=== PATIENT | female | born 1985 | race Caucasian/White ===

== ENCOUNTER 2023-07-12 09:49 | Outpatient (AMB) | payer MEDICAID, SELFPAY ==
--- NOTE | 2023-07-12 10:00 | A.OFFVIS_ITS ---
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 Patient reports when she was younger she needed a right knee surgery that was held off due to her age and sent to PT. Right knee was done in 1999 with [facility]. Currently she has constant pain that radiates into her buttocks and groin area. Her pain presented a couple of years after her knee surgery however the past year her pain has been getting worse. States hearing loud clicking in her hip. Finds very little to no relief with naproxen, topical ointment, and lidocaine patches. 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 Her pain has been worsening since the past year and she currently states she has constant pain in her hip which radiates into her buttocks and groin region. Her pain is aggravated with sleeping as well as getting in and out of the car. She also c/o numbness and tingling in her right leg and hears a loud clicking in her hip. She finds minimal relief with naproxen, topical ointment and lidocaine patches. She has not had any recent injury. She does not have a history of diabetes. 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- [employer] Review of Systems Const All systems reviewed & are unremarkable except as noted in HPI and below Physical Exam Vital Signs: BMI result Body Mass Index 23.2 Const General: cooperative, healthy appearing, comfortable, no acute distress, well developed and alert Orientation/consciousness: patient oriented x3 HEENT Head: Yes normal to inspection, Yes normocephalic and Yes atraumatic Eyes General: appearance normal, both eyes and all related structures Resp Effort & Inspection: normal respiratory effort and able to speak in complete sentences Cardio Rate: regular rate Peripheral pulses: Peripheral pulses 2+ throughout GI Palpation (GI): Soft to palpation Skin Lesions: no lesions Rashes: no rashes Neuro General: patient oriented x3 Extrem Other: Right hip: Normal to inspection. No pain with ROM of the hip. Pain along the greater trochanter. No pain with hip flexion or abduction. Negative tenderness along the SI joint, Negative SLR. NVI. Office Procedures Joint Injection/Drain Joint Injection/Drain Details: right trochanteric bursa Prep: site was prepped using aseptic technique, ethochloride spray was applied and injection warnings given Injected: 80 mg of, DepoMedrol, with 8 mL of and 1% plain lidocaine Procedure: The patient tolerated the procedure well and there was some relief with the local anesthesia Coding 58617 - Glenohumeral/Tronchanteric Bursa/Intraarticular Procedure code (CPT) selection complete Results Reviewed Results Reviewed: 07/12/23 10:25 Lidocaine HCl 2 % MPF [Xylocaine 2 % MPF] 5 ml .ROUTE .STK-MED ONE methylPREDNISolone acetate [DEPO-MedroL] 80 mg .ROUTE .STK-MED ONE Xrays were obtained in the office today and personally reviewed by me of the right hip are negative for joint collapse of osteophyte formation Assessment & Plan Assessment & Plan (1) Trochanteric bursitis of right hip: Code(s): M70.61 - Trochanteric bursitis, right hip Plan We discussed options today which include steroid injection. They did consent to move forward with the right hip injection, which was tolerated well. I recommended rest, ice and elevation and OTC anti-inflammatories PRN for discomfort. She was given a referral to physical therapy. I also sent her home exercises program and demonstrated some while in the office today. If symptoms persist or worsens over the next 6-8 weeks, patient will contact the office, otherwise follow-up as needed. Orders: Orders XR hip RT w PEL1V Today M25.559 - Pain in unspecified hip PT Evaluation and Treatment Today M70.61 - Trochanteric bursitis, right hip Patient Instructions: Scribed for Nathalie Willson PA-C, by Ambrosio Aviles bio medical technician, on 07/12/2023 at 10:00 AM EST. I, Nathalie Willson PA-C, have personally reviewed and agree with the information entered by the scribe. Coding Level of Care Code New Pt Level 3 (63091) Diagnoses Trochanteric bursitis of right hip M70.61 CPT Codes Coding - Joint 7: 73141 - Glenohumeral/Tronchanteric Bursa/Intraarticular ([id number])
[2023-07-12 10:01] VITALS: BMI 23.2
== END 2023-07-12 10:55 | disposition home or self-care (01) ==
PROVIDERS: PCP Student in an Organized Health Care Education/Training Program; Visit Provider Physician Assistant
DX: M70.61 Trochanteric bursitis, right hip (principal)
CPT/HCPCS: 20610; 99203

== ENCOUNTER 2023-07-12 12:54 | Outpatient (REF) | payer MEDICAID, SELFPAY ==
--- NOTE | ~2023-07-12 | XR_ITS ---
EXAMINATION: XR HIP, RIGHT CLINICAL INFORMATION: Pain in the right hip COMPARISON: None available. TECHNIQUE: Two views of the right hip. FINDINGS: No fracture. Alignment is anatomic. Hip joint space is maintained. Soft tissues are unremarkable. XR/XR hip RT w PEL1V IMPRESSION: Normal right hip.
== END 2023-07-12 12:55 | disposition home or self-care (01) ==
LOC: HO.HOSX 12:54
PROVIDERS: Visit Provider Physician Assistant
DX: M70.61 Trochanteric bursitis, right hip (principal)
CPT/HCPCS: 20610; 73502; 99212; J1040

== ENCOUNTER 2024-12-19 13:19 | Outpatient (REF) | payer MEDICAID, SELFPAY ==
--- NOTE | ~2024-12-19 | XR_ITS ---
EXAMINATION: XR SACRUM AND COCCYX CLINICAL INFORMATION: LBP / scaral pain COMPARISON: None available. TECHNIQUE: 2 views of the sacrum and 2 views of the coccyx were obtained. FINDINGS: No fracture, dislocation, or suspicious bone lesion. Sacral arches are intact. SI joints demonstrate very mild arthritic changes. The inferior sacrum and coccyx appear intact and unremarkable. Mild parasymphyseal spurring of the pubic bones. Normal-appearing hip joints. Normal-appearing lower lumbar spine. No soft tissue abnormalities. XR/XR sacrum coccyx min 2V IMPRESSION: 1. No acute sacral or coccygeal abnormality. 2. 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 Electronically signed by: Dash Marin MD 12/19/2024 03:57 PM EDT
--- NOTE | ~2024-12-19 | XR_ITS ---
EXAMINATION: X-RAY LUMBAR SPINE 4 VIEWS. CLINICAL INFORMATION: Low back pain radiating to the right hip. TECHNIQUE: 4 views of the lumbar spine. COMPARISON: None FINDINGS: No acute cortical disruption or gross malalignment. No lytic or blastic lesions. 7 mm metallic structure/foreign body in the abdomen and overlapping the L4 level. XR/XR lumbar spine 4V min IMPRESSION: No acute fracture or listhesis. Negative. Electronically signed by: Chinedu Da Silva MD 12/19/2024 03:52 PM EDT
--- NOTE | ~2024-12-19 | XR_ITS ---
EXAMINATION: XR HIP 2 OR MORE VIEWS RIGHT HISTORY: PAIN COMPARISON: Comparison is made with the prior examination dated 07/12/2023. FINDINGS: Two views of the right hip are submitted. Osseous mineralization is normal. There is no fracture or dislocation. The joint space is maintained. The soft tissues are unremarkable. XR/XR hip RT min 2V IMPRESSION: Unremarkable examination of the right hip. Electronically signed by: Jason Kearney MD 12/19/2024 03:53 PM EDT
--- OUTSIDE RECORDS SUMMARY | 2024-12-19 14:33 | XMS_ITS | Encounter Summary ---
Author Organization [employer] Address [address] [place] [address] [address] [place] [address] Care Team Providers Care Gutter Installer Name Role Phone Danna Irving MD Primary Care Pro vider Reason for Referral * Imaging (Routine) - Pending Review Specialty Diagnoses / Procedures Referred By Contac t Referred To Contact Radiology Diagnoses Arthritis of right hip Chronic bilateral low back pain with right-sided sciatica Procedures MR Hip w/o Contrast Right Luann Davison MD [address] [place] [address] Phone: tel: fax: Referral ID Status Reason Start Date Expiration Date V isits Requested Visits Authorized [id number] Pending Review 12/19/2024 12/19/2025 1 1 Reason for Visit * Reason Comments Hip Pain Encounter Details Date Type Department Care Team (Late st Contact Info) Description 12/19/2024 12:15 PM EDT Office Visit [facility] [address] [place], [place] [phone] Luann Davison MD [address] [place], [place] [phone] Arthritis of right hip (Primary Dx); Chronic bilateral low back pain with right-sided sciatica Social History Tobacco Use Types Packs/Day Years Used Date Smoking Tobacco: Every Day Cigarettes Passive Smoke Exposure: Current Smokeless Tobacco: Never Tobacco Cessation:Ready to Q uit: Not Asked; Counseling Given: Not Answered Comments:Smoking tobacco since 23 years of age -stopped during in -now smoking again ---7- 10 cigaret a day now in average 15 total . PQT year 18.7 + vaping Alcohol Use Standard Drinks/Week Comments Yes 0 (1 standard drink = 0.6 oz pure alcohol) 2 to 3 times a week wine -2 glasses or mixed vodka Depression Answer Date Recorded Patient Health Questionnaire-9 Score 2 05/24/2023 Housing Stability Answer Date Recorded What is your housing situation today? I have carolee olivera 07/12/[address] you li ve. Do you have problems with any of the following? None of the above 07/12/2023 Food Insecurity Answer Date Recorded Within the past 12 months, y ou worried that your food would run out before you got money to buy more: Never True 07/12/2023 Within the past 12 months,th e food you bought just didn't last and you didn't have enough money to get more: Never True Transportation Answer Date Recorded In the past 12 months, has l ack of transportation kept you from medical appts, meetings, work or from getting things needed for daily living? No 07/12/2023 Utilities Answer Date Recorded In the past 12 months, has t he electric, gas, oil or water company threatened to shut off services in your home? I am not sure 07/12/2023 Depression Answer Date Recorded Patient Health Questionnaire-2 Score 0 05/24/2023 Comments Unknown Sex and Gender Information Value Date Recorded Sex Assigned at Female 01/30/2023 4:20 PM EDT Legal Sex Female 4:12 PM EDT Gender Identity Female 01/30/2023 4:20 PM EDT Sexual Orientation Straight 01/30/2023 4: 20 PM EDT documented as of this encounter Last Filed Vital Signs Vital Sign Reading Time Taken Comments Blood Pressure 101/68 12/19/2024 12:28 PM EDT Pulse 135 12/19/2024 12:28 PM EDT Temperature 36.2 ??C (97.2 ??F) 12/19/2024 12:28 PM E DT Respiratory Rate - - Oxygen Saturation 97% 12/19/2024 12:28 PM EDT Inhaled Oxygen Concentration - - Weight 43.2 kg (95 lb 4 oz) 12/19/2024 12:28 PM EDT Height 157.5 cm (5' 2 ) 12/19/2024 12:28 PM EDT Body Mass Index 17.42 12/19/2024 12:28 PM EDT documented in this encounter Plan of Treatment Upcoming Encounters Date Type Department Care Team (Late st Contact Info) Description 02/11/2025 11:30 AM EDT Office Visit [facility] [address] [place] [address] Danna Irving MD [address] [place] [address] Scheduled Orders Name Type Priority Associated Diagnoses Orde r Schedule XR Sacrum Coccyx 2+ Views Imaging Routine Chronic bilateral low back pain with right-sided sciatica Expected: 12/19/2024, Expires: 12/19/2025 XR Hip 4+ Views Right Imaging Routine Arthritis of right hip Ordered: 12/19/2024 XR Lumbar Spine Complete 4+ Views Imaging Routine Chronic bilateral low back pain with right-sided sciatica Ordered: 12/19/2024 MR Hip w/o Contrast Right Imaging Routine Arthritis of right hip Chronic bilateral low back pain with right-sided sciatica Expected: 12/19/2024 (Approximate), Expires: 12/19/2025 documented as of this encounter Visit Diagnoses Diagnosis Arthritis of right hip- Primary Chronic bilateral low back pain with right-sided sciatica documented in this encounter Additional Health Concerns Assessment Noted Time PHQ-9 Depression Total Score: 2 05/24/20 23 9:24 AM EDT documented as of this encounter Care Teams Gutter Installer Relationship Specialty Start Date End Date Danna Irving MD [address] [place] [phone] PCP - General Internal Medicine 05/24/23 documented as of this encounter
--- OUTSIDE RECORDS SUMMARY | 2024-12-19 14:33 | XMS_ITS | Encounter Summary ---
Author Organization [employer] Address [address] [place] [address] 7 [place] [address] Care Team Providers Care Multifocal Button Generator Name Role Phone Danna Irving MD Primary Care Pro vider Reason for Visit * Reason Onset Date Comments Nurse Triage 12/16/2024 Encounter Details Date Type Department Care Team ([facility] st Contact Info) Description 12/16/2024 Telephone [facility] [address] [place] [address] Danna Irving MD [address] [place] [address] Nurse Triage Social History Tobacco Use Types Packs/Day Years Used Date Smoking Tobacco: Every Day Cigarettes Passive Smoke Exposure: Current Smokeless Tobacco: Never Comments:Smoking tobacco sin ce 23 years of age -stopped during in [...] PM EDT documented as of this encounter Miscellaneous Notes * Telephone Encounter - Flower Sim RN - 12/16/2024 11:25 AM EDT Triage call Pt reports right hip pain which radiates to right low back and down right leg. Pt reports swelling in the right hip area, warmth to touch but, neg for redness and occasional numbness in right leg. Pt denies any injury. Pt is having difficulty ambulating and is using a cane and continuesto limp but, has been laying in bed for relief last several days. Pt reports using lidocaine cream and patches without effect. Pt reports using ice/heat also without effect. ASK apt with Dr. Davison 12/19/24 @ 1215pm. Pt agrees with disposition. Pt is advised to seek assist at ED if needed Pt agrees. Insurance is verified as active prior to booking. Protocol Used: Hip Pain (Adult) Protocol-Based Disposition: See in Office or Video Visit within 3 Days Positive Triage Question: * Moderate pain (e.g., interferes with normal activities, limping) and present > 3 days * All higher-acuity triage questions were negative Care Advice Discussed: * Reassurance and Education - Hip Pain * Pain Medicines * Pain Medicines - Extra Notes and Warnings * Rest Your Hip for the Next Couple Days * Reasons To Call Back - Moderate pain (such as limping) lasts more than 3 days - Mild pain lasts more than 7 days - Signs of infection occur (such as spreading redness, warmth, fever) - You become worse * Use a Cold Pack for Pain * Use Heat After 48 Hours for Pain * Telephone Encounter - Black Kirit - 12/16/2024 11:08 AM EDT Symptom: Hip Pain - Not From Injury Outcome: Schedule an urgent appointment (within 1 hour) or talk to a nurse or provider soon Reason: Trouble walking The caller accepted this outcome. *pt states hip pain now radiating towards back . Severe pain/ unable to walk normally Right side of hip warm to the touch documented in this encounter Plan of Treatment Upcoming Encounters Date Type Department Care Team (Late st Contact Info) Description 02/11/2025 11:30 AM EDT Office Visit [facility] [address] [place] [phone] Danna Irving MD [address] [place] [phone] documented as of this encounter Visit Diagnoses Not on filedocumented in this encounter Additional Health Concerns Assessment Noted Time PHQ-9 Depression Total Score: 2 05/24/20 23 9:24 AM EDT documented as of this encounter Care Teams Multifocal Button Generator Relationship Specialty Start Date End Date Danna Irving MD [address] [place] [phone] PCP - General Internal Medicine 05/24/23 documented as of this encounter
--- OUTSIDE RECORDS SUMMARY | 2024-12-19 14:33 | XMS_ITS | Encounter Summary ---
Author Organization [employer] Address [address] [place] [address] 7 [place] [address] Care Team Providers Care Performance Instructor Name Role Phone Danna Irving MD Primary Care Pro vider Reason for Visit * Reason Onset Date Comments Chart prep 12/17/2024 Encounter Details Date Type Department Care Team ([facility] st Contact Info) Description 12/17/2024 Telephone [facility] [address] [place] [address] Danna Irving MD [address] [place] [address] Chart prep Social History Tobacco Use Types Packs/Day Years [...] encounter Miscellaneous Notes * Telephone Encounter - Tosha Marcano MA - 12/17/2024 2:35 PM EDT Chart Prep Labs: not done Images: not done Vaccines due: yes Referrals: appointment pending Screenings: mammogram and pap smear Overdue care gaps: Not applicable documented in this encounter Plan of Treatment Upcoming Encounters Date Type Department Care Team (Late st Contact Info) Description 02/11/2025 11:30 AM EDT Office Visit [facility] [address] [place] [address] Danna Irving MD [address] [place] [address] documented as of this encounter Visit Diagnoses Not on filedocumented in this encounter Additional Health Concerns Assessment Noted Time PHQ-9 Depression Total Score: 2 05/24/20 23 9:24 AM EDT documented as of this encounter Care Teams Performance Instructor Relationship Specialty Start Date End Date Danna Irving MD [address] [place] [phone] PCP - General Internal Medicine 05/24/23 documented as of this encounter
--- OUTSIDE RECORDS SUMMARY | 2024-12-19 14:33 | XMS_ITS | Clinical Summary ---
Author Organization [employer] Address [address] [facility] [address]t [place] [address] Care Team Providers Care Postal Clerk Name Role Phone Danna Irving MD Primary Care Pro vider Allergies No known active allergies Medications acetaminophen (Tylenol) 500 MG tablet Take by mouth. Activ e nicotine polacrilex (EQ Nicotine Polacrilex) 2 MG gum Chew 1 each (2 mg) if needed for smoking cessation. 100 each 3 Active Diclofenac Sodium 1 % gel Apply 1 application topically at noon and 1 application in the evening. Apply in right hip. 50 g 3 Active lidocaine (Lidoderm) 5 % patch APPLY ONE PATCH TOPICALLY DAILY NEEDED FOR PAIN. REMOVE AFTER 12 HOURS 30 patch 3 Active meloxicam (Mobic) 15 MG tablet Take 1 tablet (15 mg) by mouth Once per day. 30 tablet 5 12/20/19 26 Active cyclobenzaprine (Flexeril) 10 MG tablet Take 1 tablet (10 mg) by mouth at bedtime for 10 days. 10 tablet 5 12/30/19 25 Active Active Problems Problem Noted Date Diagnosed Date Health care maintenance 05/24/2023 Anxiety 05/24/2023 Tobacco use disorder 05/24/2023 Nevus 05/24/2023 Elevated blood pressure reading 05/24/2023 Right hip pain 01/30/2023 Assessment & Plan (01/30/2023 10:27 PM EDT): ro trochanteric bursitis, pyriform syndrome, osteonecrosis Order MRI, labs See above Encounters Date Type Department Care Team Description 12/19/2024 12:15 PM EDT Office Visit [facility] [address] [place] [address] Luann Davison MD Arthritis of right hip (Primary Dx); Chronic bilateral low back pain with right-sided sciatica 12/19/2024 Travel 12/17/2024 Telephone [facility] [address] [place] [address] Danna Irving MD Chart prep 12/16/2024 Telephone [facility] [address] [place] [address] Danna Irving MD Nurse Triage 11/29/2024 Population Health Risk Score [facility] () Department [address] [place] [id number] Provider, Population Health Generic from Last 3 Months Family History Medical History Relation Name Comments DM2,HTN,dementia,TIAs Maternal Grandmother Skin cancer Maternal Grandmother Asthma Mother cousin : sarcoma Other unspecified maliagncy Paternal Grandfather Heart disease Paternal Grandmother Asthma Sister Relation Name Status Comments Maternal Grandmother Mother Other Paternal Grandfather Paternal Grandmother Sister Social History Tobacco Use Types Packs/Day Years [...] the past 12 months, has t he [employer], [employer], oil or water company threatened to shut [...] Orientation Straight 01/30/2023 4: 20 PM EDT Last Filed Vital Signs Vital Sign Reading Time Taken Comments Blood Pressure 101/68 12/19/2024 12:28 PM EDT Pulse 135 12/19/2024 12:28 PM EDT Temperature 36.2 ??C (97.2 ??F) 12/19/2024 12:28 PM E DT Respiratory Rate 17 01/30/2023 5:04 PM EDT Oxygen Saturation 97% 12/19/2024 12:28 PM EDT Inhaled Oxygen Concentration - - Weight 43.2 kg (95 lb 4 oz) 12/19/2024 12:28 PM EDT Height 157.5 cm (5' 2 ) 12/19/2024 12:28 PM EDT Body Mass Index 17.42 12/19/2024 12:28 PM EDT Plan of Treatment Upcoming Encounters Date Type Department Care Team (Late st Contact Info) Description 02/11/2025 11:30 AM EDT Office Visit [facility] [address] [place] [address] Danna Irving MD [address] [place], [place] [phone] Health Maintenance Due Date Last Done Comments HIV Screening 1983 Lipid Panel 1983 Alcohol/Substance Use Screening 1995 Family Planning (PISQ) 1998 Hepatitis C Screening 2001 DTaP/Tdap/Td Vaccines (1 - Tdap) 2002 Hepatitis B Vaccines (1 of 3 - 19+ 3-dose series) 2002 Pneumococcal Vaccine: Pediatrics (0 to 5 Years) and At-Risk Patients (6 to 49) Years) (1 of 2 - PCV) 2002 Pap Smear 2004 Cervical Cancer Screening 2013 HPV/Cotest 2013 Mammogram 2023 COVID-19 Vaccine (1 - 2023-2 5 season) 2024 Influenza Vaccine (#1) 2024 07/19/2006 Depression Screening 05/24/2024 05/24/2023, 05/24/2023 SDOH Screening 05/24/2024 05/24/2023 Tobacco Screening 12/19/2025 12/19/2024 Zoster Vaccines (1 of 2) 2033 RSV Patients and Patients Aged 60 years or older (1 - 1-dose 75+ series) 2058 HIB Vaccines Aged Out No longer eligi ble based on patient's age to complete this topic HPV Vaccines Aged Out No longer eligi ble based on patient's age to complete this topic Hepatitis A Vaccines Aged Out No long er eligible based on patient's age to complete this topic IPV Vaccines Aged Out No longer eligi ble based on patient's age to complete this topic Meningococcal Vaccine Aged Out No jesenia linda eligible based on patient's age to complete this topic RSV under 20 months Aged Out No longe r eligible based on patient's age to complete this topic Rotavirus Vaccines Aged Out No longer eligible based on patient's age to complete this topic Insurance [facility] C3 Care Teams Postal Clerk Relationship Specialty Start Date End Date Danna Irving MD [address] [place] [phone] PCP - General Internal Medicine 05/24/23
--- OUTSIDE RECORDS SUMMARY | 2024-12-19 14:33 | XMS_ITS | Encounter Summary ---
Author Organization [employer] Address [address] [facility] [address] [place] [address] Care Team Providers Care Bottom Stop Attacher Name Role Phone Danna Irving MD Primary Care Pro vider Encounter Details Date Type Department Care Team (Latest Contact Info) Description 12/19/2024 Travel Social History Tobacco Use Types Packs/Day Years [...] PM EDT documented as of this encounter Plan of Treatment Upcoming Encounters Date Type Department Care Team (Late st Contact Info) Description 02/11/2025 11:30 AM EDT Office Visit [facility] [address] [place] [phone] Danna Irving MD [address] [place] [phone] documented as of this encounter Visit Diagnoses Not on filedocumented in this encounter Additional Health Concerns Assessment Noted Time PHQ-9 Depression Total Score: 2 05/24/20 9:24 AM EDT documented as of this encounter Care Teams Bottom Stop Attacher Relationship Specialty Start Date End Date Danna Irving MD [address] [place] [phone] PCP - General Internal Medicine 05/24/23 documented as of this encounter
== END 2024-12-19 13:20 | disposition home or self-care (01) ==
LOC: HO.HHCX 13:19
PROVIDERS: Visit Provider Internal Medicine
DX: M54.41 Lumbago with sciatica, right side (principal); G89.29 Other chronic pain
CPT/HCPCS: 72110; 72220; 73502

== ENCOUNTER → 2024-12-19 13:19 | Outpatient (BNV) | payer MEDICAID, SELFPAY | PROVIDERS: Visit Provider Radiology Diagnostic Radiology | DX: M54.50 Low back pain, unspecified (principal); M25.551 Pain in right hip; M53.3 Sacrococcygeal disorders, not elsewhere classified | CPT/HCPCS: 72110; 72220; 73502 ==

== ENCOUNTER 2025-01-08 14:14 | Outpatient (AMB) | payer MEDICAID, SELFPAY ==
--- NOTE | 2025-01-08 14:16 | MHC.OFFVIS ---
Vital Signs 01/08/25 14:18 Height 5 ft 2.5 in Weight 101 lb BMI 18.2 BP 146/96 H Blood Pressure Location Lt brachial Position Sitting Respiration 16 Pulse 121 H Pulse Source Pulse Oximeter Pulse Oximetry (%) 98 Oxygen Delivery Method Room Air Intake Visit Reasons: Low back pain/rt hip arthritis Lockstitch Waistband Setter Required: No Allergies No Known Allergies Allergy (Verified 01/08/25 14:20) Medication List - Last Reconciled 01/08/25 by Miley Lemus LPN acetaminophen 1,000 mg PO Q6H PRN ibuprofen 800 mg PO Q8H PRN HPI Comments Details: The patient is a 39-year-old female presenting with chronic right hip pain. This condition has been progressive over several years, notably worsening over time. An important historical factor includes a previous knee injury during adolescence, which led to right knee orthopedic surgery and contributed to altered weight distribution and misalignment of the right hip. The hip pain is particularly severe, frequently described as a sharp, stabbing sensation or a constant throb, and is accompanied by audible cracking. Activities such as ambulation, stair navigation, and certain sitting positions serve to aggravate the pain, whereas shifting weight to the left side provides some temporary relief. The patient's sleep is severely disrupted, with only short durations of rest possible before pain-related arousal. There is noted groin discomfort and occasional minor back pain, though the latter is not comparable to past sciatica. The patient has a history of unsuccessful conservative treatments, such as physical therapy and NSAIDs, and reports limited relief from a previous bursal injection. Despite pharmacological interventions like Flexeril for muscle relaxation and temporary sleep improvement, the patient avoids prolonged use of analgesic medications, notably narcotics, out of preference for non-pharmacological management. Current priorities include enhanced mobility and a return to routine functional activities without debilitating pain. - Onset and Timing: Chronic, several years; worsened progressively. - Quality and Character: Sharp stabbing and throbbing sensations; cracking sounds in the joint. - Primary Location: Right hip, with discomfort predominantly around the hip bone and groin area; minimal radiation to back. - Aggravating Factors: Walking, stairs, sitting positions that exert pressure on the right hip. - Alleviating Factors: Avoiding pressure on the right side; shifting weight leftwards. - Interferences: Causes sleep disruptions; affects mobility, daily activities, and ability to perform doctor of naprapathy. - Affect: Pain impacts mood significantly, leading to frustration and impaired quality of life. - Analgesia: Previous use of Meloxicam and Flexeril with limited benefit; aversion to narcotic use. - Adverse Effects: Previous injections caused severe short-term discomfort without long-term benefit. - Activities of Daily Living: Struggles with routine tasks; requires assistance with stairs and carrying laundry; severe limitations on mobility and sleep. - Aberrant Drug-Related Behaviors: None reported; adherence to prescribed non-narcotic regimens. 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 - Neurological: Reports sleep disturbances. - Gastrointestinal: Denies significant issues beyond described medications. - Other Systems: Denies additional concerns, unspecified general seasonal allergies acknowledged. Physical Exam Vital Signs: Last Vital Signs Pulse 121 H 01/08/25 14:18 Resp 16 01/08/25 14:18 BP 146/96 H 01/08/25 14:18 Pulse Ox 98 01/08/25 14:18 Oxygen Delivery Method Room Air 01/08/25 14:18 BMI result Body Mass Index 18.2 Results Reviewed Results Reviewed: 12/19/24 XR/XR hip RT min 2V FINDINGS: Two views of the right hip are submitted. Osseous mineralization is normal. There is no fracture or dislocation. The joint space is maintained. The soft tissues are unremarkable. IMPRESSION: Unremarkable examination of the right hip. 12/19/24 XR/XR sacrum coccyx min 2V FINDINGS: No fracture, dislocation, or suspicious bone lesion. Sacral arches are intact. SI joints demonstrate very mild arthritic changes. The inferior sacrum and coccyx appear intact and unremarkable. Mild parasymphyseal spurring of the pubic bones. Normal-appearing hip joints. Normal-appearing lower lumbar spine. No soft tissue abnormalities. IMPRESSION: 1. No acute sacral or coccygeal abnormality. 2. 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 No lytic or blastic lesions. 7 mm metallic structure/foreign body in the abdomen and overlapping the L4 level. IMPRESSION: No acute fracture or listhesis. Negative.. Assessment & Plan Assessment & Plan (1) Right hip pain: Code(s): M25.551 - Pain in right hip Category: Medical Plan I will proceed with an MRI to further investigate the causes of the patient's chronic right hip pain, focusing on detailed imaging to reveal issues not visible via x-rays, such as tendon damage or labral tears. Patient has exhausted greater than 6 weeks conservative therapy including PT, HEP, OTC medications, NSAIDs, prescription medications and previous injections all without improvement of her symptoms. Pain too severe at this time to repeat PT. Cyclobenzaprine will be used for sleep improvement, with emphasis on avoiding long-term narcotic use. Hip injection therapy will be considered depending on MRI findings. The patient has been counseled extensively on the benefits, risks, and alternatives to these approaches and agrees to the proposed management plan. Follow-up will occur after MRI completion to ascertain appropriate therapeutic interventions going forward. During today's visit, we discussed the possibility of structural abnormalities, such as labral tears in the right hip, which an MRI will help to confirm. I explained the potential benefits of a steroid injection for pain relief, should the MRI indicate appropriate targets. We also covered the limitations of x-ray findings and the broader capabilities of MRI in visualizing soft-tissue structures. The patient accepted the plan once informed about the need for further imaging to refine therapeutic strategies. She verbalized understanding of all proposed diagnostic tests, risks involved, and agreed to return for further discussions after MRI completion. Patient was informed and verbally consented to the use of an ambient scribe for clinic note documentation during this visit. Orders: Orders MR hip RT wo con Today M25.551 - Pain in right hip Medications: New cyclobenzaprine 10 mg PO BEDTIME PRN 30 tabs 1RF muscle spasm Patient Instructions: - Await a call to schedule an MRI for your right hip to discern structural issues. - Continue using the prescribed muscle relaxant at bedtime to aid sleep. - Avoid long-term use of NSAIDs due to potential gastrointestinal side effects. - Call our office if you do not receive MRI scheduling within a week. - Report any new symptoms, worsening pain, or concerns promptly. - Maintain current care strategies while awaiting further test results. - Follow-up with us once MRI results are available to further discuss intervention strategies. Coding Level of Care Code New Pt Level 4 (84122) Complex EM visit Add On G2211 Diagnoses Right hip pain M25.551
[2025-01-08 14:18] VITALS: BP 146/96; PULSE 121; RESP 16; O2SAT 98; BMI 18.2
--- OUTSIDE RECORDS SUMMARY | 2025-01-08 17:06 | XMS_ITS | Encounter Summary ---
Author Organization [employer] Address [address] [facility] 7t [place] [address] Care Team Providers Care Diversified Crops Supervisor Name Role Phone Danna Irving MD Primary Care Pro vider Reason for Visit * Reason Onset Date Comments Med Refill 01/03/2025 Encounter Details Date Type Department Care Team (Late st Contact Info) Description 01/03/[address] [facility] MEDICINE [address] [place], [place] [phone] Luann Davison MD [address] [place], [place] [phone] Social History Tobacco Use Types Packs/Day Years [...] Description 02/11/2025 11:30 AM EDT Office Visit [facility] MEDICINE [address] [place] [address] Danna Irving MD [address] [place] [address] documented as of this encounter Visit Diagnoses Not on filedocumented in this encounter Additional Health Concerns Assessment Noted Time PHQ-9 Depression Total Score: 2 05/24/20 9:24 AM EDT documented as of this encounter Care Teams Diversified Crops Supervisor Relationship Specialty Start Date End Date Danna Irving MD [address] [place] [phone] PCP - General Internal Medicine 05/24/23 documented as of this encounter
--- OUTSIDE RECORDS SUMMARY | 2025-01-08 17:06 | XMS_ITS | Encounter Summary ---
Author Organization [employer] Address [address] [place] [address] 7 [place] [address] Care Team Providers Care Site Technician Name Role Phone Danna Irving MD Primary Care Pro vider Reason for Visit * Reason Onset Date Comments Nurse Triage 12/16/2024 Encounter Details Date Type Department Care Team ([facility] st Contact Info) Description 12/16/2024 Telephone [facility] MED[facility]INE [address] [place] [address] Danna Irving MD [address] [place] [address] Nurse Triage Social History Tobacco Use Types [...] Description 02/11/2025 11:30 AM EDT Office Visit [facility] MED[facility]INE [address] [place] [address] Danna Irving MD [address] [place] [phone] documented as of this encounter Visit Diagnoses Not on filedocumented in this encounter Additional Health Concerns Assessment Noted Time PHQ-9 Depression Total Score: 2 05/24/20 23 9:24 AM EDT documented as of this encounter Care Teams Site Technician Relationship Specialty Start Date End Date Danna Irving MD [address] [place] [phone] PCP - General Internal Medicine 05/24/23 documented as of this encounter
--- OUTSIDE RECORDS SUMMARY | 2025-01-08 17:06 | XMS_ITS | Clinical Summary ---
Author Organization [employer] Address [address] [facility] 7t [place] [address] Care Team Providers Care Machine Pie Maker Name Role Phone Danna Irving MD Primary [...] bedtime for 10 days. 10 tablet 5 Active Active Problems Problem Noted Date Diagnosed Date Arthritis of right hip 12/19/2024 Assessment & Plan (12/19/2024 3:12 PM EDT): Rule out AVN versus bursitis of right hip, see right hip pain Health care maintenance 05/24/2023 Anxiety 05/24/2023 Tobacco use disorder 05/24/2023 Nevus 05/24/2023 Elevated blood pressure reading 05/24/2023 Right hip pain 01/30/2023 Assessment & Plan (12/19/2024 3:11 PM EDT): For more than 2 years, rule out avascular necrosis of the femur, piriformis syndrome. Order MRI, discussed with patient regarding calling back here in 2 weeks if she has not received an appointment for this We will use meloxicam daily x 2 weeks and Flexeril at bedtime as needed breakthrough pain with Tylenol I adjusted the height of the cane for her to walk more comfortable, discussed importance of wearing appropriate shoes Referred to pain clinic Assessment & Plan (01/30/2023 10:27 PM EDT): ro trochanteric bursitis, pyriform syndrome, osteonecrosis Order MRI, labs See above Encounters Date Type Department Care Team Description 01/03/2025 Refill [facility] [address] [place] [address] Luann Davison MD 12/23/2024 Telephone [facility] [address] [place] [address] Danna Irving MD Results 12/20/2024 Orders Only [facility] [address] [place] [address] Luann Davison MD Arthritis of right hip (Primary Dx) 12/19/2024 12:15 PM EDT Office Visit [facility] [address] [place] [address] Luann Davison MD Arthritis of right hip (Primary Dx); Right hip pain; Chronic bilateral low back pain with right-sided sciatica 12/19/2024 Orders Only [facility] [address] [place] [address] Luann Davison MD 12/19/2024 Travel 12/17/2024 Telephone [facility] [address] [place] [address] Danna Irving MD Chart prep 12/16/2024 Telephone [facility] [address] [place] [address] Danna Irving MD Nurse Triage 11/29/2024 Population Health Risk Score [facility] ([facility]) Department [address] [place] [address], [place] [phone] Provider, Population Health Generic from Last [...] Pressure 101/68 12/19/2024 12:28 PM EDT Pulse 92 12/19/2024 12:58 PM EDT Temperature 36.2 ??C (97.2 ??F) [...] Description 02/11/2025 11:30 AM EDT Office Visit [facility] [address] [place] [address] Danna Irving MD [address] [place] [address] Health Maintenance Due Date Last Done Comments [...] on patient's age to complete this topic Procedures Procedure Name Priority Date/Time Associated Diagnosis Comments XR HIP 2 OR 3 VIEWS RIGHT Routine 12/19/2024 1:21 PM EDT XR SACRUM COCCYX 2+ VIEWS Routine 12/19/2024 1:19 PM EDT Chronic bilateral low back pain with right-sided sciatica XR LUMBAR SPINE COMPLETE 4+ VIEWS Routine 12/19/2024 1:19 PM EDT Chronic bilateral low back pain with right-sided sciatica from Last 3 Months Results * XR Hip 2 or 3 Views Right (12/19/2024 1:21 PM EDT) Anatomical Region Laterality Modality Lower Extremities, Hip Right Radiograp hic Imaging 12/19/2024 1:21 PM EDT Narrative 12/19/2024 3:56 PM EDT ?[facility] ?[address] ?[place] [address] ?XRay Report ? Signed ? Patient: Gross,Arianna ?MR#: [id number] ?? 157 ? : 1985 ?Acct:[id number] ? Age/Sex: 39 / F ?ADM Date: 04/03/25 ? Loc: HO.HHCX ? Attending Dr: Luann Davison MD ? Ordering Physician: Luann Davison MD ?? Date of Service: 12/19/24 ?? Procedure(s): XR hip RT min 2V ?? Accession Number(s): [id number] ? cc: Luann Davison MD ? EXAMINATION: ??XR HIP 2 OR MORE VIEWS RIGHT ? HISTORY: PAIN ? COMPARISON: Comparison is made with the prior examination dated ?? 07/12/2023. ? FINDINGS: ?? Two views of the right hip are submitted. ??Osseous ?? mineralization is normal. ??There is no fracture or dislocation. ??The ?? joint space is maintained. ??The soft tissues are unremarkable. ? XR/XR hip RT min 2V ?? IMPRESSION: ?? Unremarkable examination of the right hip. ? Electronically signed by: ??Jason Kearney MD ??12/19/2024 03:53 PM EDT ? Dictated By: ?Jason Kearney MD ? Signed By: ?<Electronically signed by Jason Kearney MD in OV> ?12/19/24 1553 ? DD/ 1321 ? TD/TT: 12/19/24 1325 ? Chest Painting And Sealing Supervisor: ? Procedure Note Howardroxy, Image - 12/19/2024 [place] [address] XRay Report Signed Patient: Anastasia GrossrooseveltcaMR#: [id number] 157 : 1985Acct:[id number] Age/Sex: 39 / FADM Date: 12/19/24 Loc: HO.HHCX Attending Dr: Luann Davison MD Ordering Physician: Luann Davison MD Date of Service: 12/19/24 Procedure(s): XR hip RT min 2V Accession Number(s): [id number] cc: Luann Davison MD EXAMINATION: XR HIP 2 OR MORE VIEWS RIGHT HISTORY: PAIN COMPARISON: Comparison is made with the prior examination dated 07/12/2023. FINDINGS: Two views of the right hip are submitted. Osseous mineralization is normal. There is no fracture or dislocation. The joint space is maintained. The soft tissues are unremarkable. XR/XR hip RT min 2V IMPRESSION: Unremarkable examination of the right hip. Electronically signed by: Jason Kearney MD 12/19/2024 03:53 PM EDT RP Dictated By: Jason Kearney MD Signed By: <Electronically signed by Jason Kearney MD in OV> 12/19/24 1553 DD/ 1321 TD/TT: 12/19/24 1325 Chest Painting And Sealing Supervisor: us Luann Davison MD IMG XR PROCEDURES Final Result * XR Sacrum Coccyx 2+ Views (12/19/2024 1:19 PM EDT) Anatomical Region Laterality Modality Sacrum, Coccyx Radiographic Sun ging 12/19/2024 1:19 PM EDT Narrative 12/19/2024 4:00 PM EDT ?[facility] ?[address] ?[place] [address] ?XRay Report ? Signed ? Patient: Arianna Gross ?MR#: [id number] ?? 157 ? : 1985 ?Acct:[id number] ? Age/Sex: 39 / F ?ADM Date: 12/19/24 ? Loc: HO.HHCX ? Attending Dr: Luann Davison MD ? Ordering Physician: Luann Davison MD ?? Date of Service: 12/19/24 ?? Procedure(s): XR sacrum coccyx min 2V ?? Accession Number(s): [id number] ? cc: Luann Davison MD ? EXAMINATION: ?? XR SACRUM AND COCCYX ? CLINICAL INFORMATION: ?? LBP / scaral pain ? COMPARISON: ?? None available. ? TECHNIQUE: ?? 2 views of the sacrum and 2 views of the coccyx were obtained. ? FINDINGS: ?? No fracture, dislocation, or suspicious bone lesion. Sacral arches are ?? intact. SI joints demonstrate very mild arthritic changes. The inferior ?? sacrum and coccyx appear intact and unremarkable. ?? Mild parasymphyseal spurring of the pubic bones. ?? Normal-appearing hip joints. ?? Normal-appearing lower lumbar spine. ? No soft tissue abnormalities. ? XR/XR sacrum coccyx min 2V ?? IMPRESSION: ?? 1. No acute sacral or coccygeal abnormality. ?? 2. 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 ? Electronically signed by: ??Dash Marin MD ??12/19/2024 03:57 PM EDT RP ? Dictated By: ?Dash Marin MD ? Signed By: ?<Electronically signed by Dash Marin MD in OV> ?12/19/24 1557 ? DD/ 1319 ? TD/TT: 12/19/24 1400 ? Chest Painting And Sealing Supervisor: ? Procedure Note Nemesiobrittanycatyaveroxy, Image - 12/19/2024 [place] [address] XRay Report Signed Patient: Luci GrosscaMR#: [id number] 157 : 1985Acct:[id number] Age/Sex: 39 / FADM Date: 12/19/24 Loc: HO.HHCX Attending Dr: Luann Davison MD Ordering Physician: Luann Davison MD Date of Service: 12/19/24 Procedure(s): XR sacrum coccyx min 2V Accession Number(s): [id number] cc: Luann Davison MD EXAMINATION: XR SACRUM AND COCCYX CLINICAL INFORMATION: LBP / scaral pain COMPARISON: None available. TECHNIQUE: 2 views of the sacrum and 2 views of the coccyx were obtained. FINDINGS: No fracture, dislocation, or suspicious bone lesion. Sacral arches are intact. SI joints demonstrate very mild arthritic changes. The inferior sacrum and coccyx appear intact and unremarkable. Mild parasymphyseal spurring of the pubic bones. Normal-appearing hip joints. Normal-appearing lower lumbar spine. No soft tissue abnormalities. XR/XR sacrum coccyx min 2V IMPRESSION: 1. No acute sacral or coccygeal abnormality. 2. 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 Electronically signed by: Dash Marin MD 12/19/2024 03:57 PM EDT RP Dictated By: Dash Marin MD Signed By: <Electronically signed by Dash Marin MD in OV> 12/19/24 1557 DD/ 1319 TD/TT: 12/19/24 1400 Chest Painting And Sealing Supervisor: us Luann Davison MD IMG XR PROCEDURES Final Result * XR Lumbar Spine Complete 4+ Views (12/19/2024 1:19 PM EDT) Anatomical Region Laterality Modality Spine, L-spine Radiographic Sun ging 12/19/2024 1:19 PM EDT Narrative 12/19/2024 3:55 PM EDT ?[facility] ?[address] ?[place] [address] ?XRay Report ? Signed ? Patient: Gross,Arianna ?MR#: [id number] ?? 157 ? : 1985 ?Acct:[id number] ? Age/Sex: 39 / F ?ADM Date: 12/19/24 ? Loc: HO.HHCX ? Attending Dr: Luann Davison MD ? Ordering Physician: Luann Davison MD ?? Date of Service: 12/19/24 ?? Procedure(s): XR lumbar spine 4V min ?? Accession Number(s): [id number] ? cc: Luann Davison MD ? EXAMINATION: ?? X-RAY LUMBAR SPINE 4 VIEWS. ? CLINICAL INFORMATION: ?? Low back pain radiating to the right hip. ? TECHNIQUE: ?? 4 views of the lumbar spine. ? COMPARISON: None ? FINDINGS: ? No acute cortical disruption or gross malalignment. No lytic or blastic ?? lesions. 7 mm metallic structure/foreign body in the abdomen and ?? overlapping the L4 level. ? XR/XR lumbar spine 4V min ?? IMPRESSION: ?? No acute fracture or listhesis. Negative. ? Electronically signed by: ??Chinedu Da Silva MD ??12/19/2024 03:52 PM ?? EDT RP ? Dictated By: ?Chinedu Ortega MD ? Signed By: ?<Electronically signed by Chinedu Medrano MD in OV> ? 12/19/24 1552 ? DD/ 1319 ? TD/TT: 12/19/24 1400 ? Chest Painting And Sealing Supervisor: ? Procedure Note Bhanu, Image - 12/19/2024 [facility] [address] [place] [address] XRay Report Signed Patient: Jamshid GrossR#: [id number] 157 : 1985Acct:[id number] Age/Sex: 39 / FADM Date: 12/19/24 Loc: HO.HHCX Attending Dr: Luann Davison MD Ordering Physician: Luann Davison MD Date of Service: 12/19/24 Procedure(s): XR lumbar spine 4V min Accession Number(s): [id number] cc: Luann Davison MD EXAMINATION: X-RAY LUMBAR SPINE 4 VIEWS. CLINICAL INFORMATION: Low back pain radiating to the right hip. TECHNIQUE: 4 views of the lumbar spine. COMPARISON: None FINDINGS: No acute cortical disruption or gross malalignment. No lytic or blastic lesions. 7 mm metallic structure/foreign body in the abdomen and overlapping the L4 level. XR/XR lumbar spine 4V min IMPRESSION: No acute fracture or listhesis. Negative. Electronically signed by: Chinedu Da Silva MD 12/19/2024 03:52 PM EDT Dictated By: Chinedu Ortega MD Signed By: <Electronically signed by Chinedu Medrano MDin OV> 12/19/24 1552 DD/ 1319 TD/TT: 12/19/24 1400 Chest Painting And Sealing Supervisor: Luann Davison MD IMG XR PROCEDURES Edited Result - Final from Last 3 Months Insurance [facility] C3 Care Teams Machine Pie Maker Relationship Specialty Start Date End Date Danna Irving MD [address] [place] [phone] PCP - General Internal Medicine 05/24/23
== END 2025-01-08 14:47 | disposition home or self-care (01) ==
LOC: HO.PMC 14:15
PROVIDERS: Referring Provider Internal Medicine; Visit Provider Registered Nurse Emergency
DX: M25.551 Pain in right hip (principal)
CPT/HCPCS: 99204

== ENCOUNTER → 2025-01-08 14:14 | Outpatient (BNVA) | payer MEDICAID, SELFPAY | PROVIDERS: Referring Provider Internal Medicine; Visit Provider Registered Nurse Emergency | DX: M25.551 Pain in right hip (principal); M54.50 Low back pain, unspecified | CPT/HCPCS: 99212 ==

== ENCOUNTER → 2025-01-26 18:41 | Outpatient (BNV) | payer MEDICAID, SELFPAY | PROVIDERS: PCP Student in an Organized Health Care Education/Training Program; Visit Provider Radiology Diagnostic Radiology | DX: M25.551 Pain in right hip (principal) | CPT/HCPCS: 73721 ==

== ENCOUNTER 2025-01-26 18:42 | Outpatient (REF) | payer MEDICAID, SELFPAY ==
--- NOTE | ~2025-01-26 | MR_ITS ---
CLINICAL HISTORY: M25.551 - Pain in right hip --- Additional Notes or Special Instructions: failed gr eater than 6 weeks conservative therapy. MR right hip Comparison: CR/SR - XR HIP RT MIN 2V - 12/19/24 13:58 EDT DX/SR - XR HIP RT W PEL1V - 07/12/23 09:46 EDT Findings: No bone marrow edema. Normal alignment without subluxation. No retroversion, over coverage, os acetabuli. Normal head neck angle. No fibrocystic lesion of the femoral neck. No dysplasia. Small right hip joint effusion. There is increased signal in the labrum with irregularity. The femoral and acetabular cartilage are intact. There is increased signal in ligamentum teres. The capsule and of other ligaments are normal. Unremarkable muscle, tendons and entheses. Normal vessels, nerves and soft tissues. No acute intrapelvic pathology. Fibroid uterus. Tampon in the vagina. Impression: Tear of the labrum. Increased signal in ligamentum teres may indicate partial tear. Small joint effusion. This document has been electronically signed by: Keira Farias MD on 01/27/2025 21:47:18
--- OUTSIDE RECORDS SUMMARY | 2025-01-26 18:49 | XMS_ITS | Encounter Summary ---
Author Organization [employer] Address [address] [place] [address] 7t [place] [address] Care Team Providers Care Electronic Equipment Repairer Name Role Phone Danna Irving MD Primary Care Pro vider Reason for Visit * Reason Onset Date Comments Nurse Triage 12/16/2024 Encounter Details Date Type Department Care Team ([facility] st Contact Info) Description 12/16/2024 Telephone [facility] MEDICINE [address] [place] [address] Danna Irving MD [address] [place] [address] Nurse Triage Social History Tobacco Use Types [...] Description 02/11/2025 11:30 AM EDT Office Visit [facility] MED[facility]INE [address] [place] [address] Danna Irving MD [address] [place] [address] documented as of this encounter Visit Diagnoses Not on filedocumented in this encounter Additional Health Concerns Assessment Noted Time PHQ-9 Depression Total Score: 2 05/24/20 23 9:24 AM EDT documented as of this encounter Care Teams Electronic Equipment Repairer Relationship Specialty Start Date End Date Danna Irving MD [address] [place] [phone] PCP - General Internal Medicine 05/24/23 documented as of this encounter
--- OUTSIDE RECORDS SUMMARY | 2025-01-26 18:49 | XMS_ITS | Encounter Summary ---
Author Organization [employer] Address [address] [facility] 7t [place] [address] Care Team Providers Care Power System Dispatcher Name Role Phone Danna Irving MD Primary Care Pro vider Reason for Visit * Reason Onset Date Comments Med Refill 01/03/2025 Encounter Details Date Type Department Care Team (Late st Contact Info) Description 01/03/2025 Refill [facility] MED[facility]INE [address] [place], [place] [phone] Luann Davison MD [address] [place], [place] [phone] Social History Tobacco Use Types Packs/Day Years [...] Description 02/11/2025 11:30 AM EDT Office Visit [facility] MED[facility]INE [address] [place] [address] Danna Irving MD [address] [place] [phone] documented as of this encounter Visit Diagnoses Not on filedocumented in this encounter Additional Health Concerns Assessment Noted Time PHQ-9 Depression Total Score: 2 05/24/20 9:24 AM EDT documented as of this encounter Care Teams Power System Dispatcher Relationship Specialty Start Date End Date Danna Irving MD [address] [place] [phone] PCP - General Internal Medicine 05/24/23 documented as of this encounter
--- OUTSIDE RECORDS SUMMARY | 2025-01-26 18:49 | XMS_ITS | Clinical Summary ---
Author Organization [employer] Address [address] [facility] 7t [place] [address] Care Team Providers Care Biostatistics Teacher Name Role Phone Danna Irving MD Primary [...] Encounters Date Type Department Care Team Description 01/14/2025 Telephone [facility] [address] [place] [address] Danna Irving MD Fax 01/13/2025 Telephone [facility] [address] [place] [address] Luann Davison MD 01/03/2025 Refill [facility] [address] [place] [address] Luann Davison MD 12/23/2024 Telephone [facility] [address] [place] [address] Danna Irving MD Results 12/20/2024 Orders Only [facility] [address] [place] [address] Luann Davison MD Arthritis of right hip (Primary Dx) 12/19/2024 12:15 PM EDT Office Visit [facility] [address] [place] [address] Luann Davison MD Arthritis of right hip (Primary Dx); Right hip pain; Chronic bilateral low back pain with right-sided sciatica 12/19/2024 Orders Only [facility] [address] [place] [address] Luann Davison MD 12/19/2024 Travel 12/17/2024 Telephone [facility] [address] [place] [address] Danna Irving MD Chart prep 12/16/2024 Telephone [facility] [address] [facility] [place] [address] Danna Irving MD Nurse Triage 11/29/2024 Population Health Risk Score [facility] () Department [address] [place] [phone] Provider, Population Health Generic from Last [...] Description 02/11/2025 11:30 AM EDT Office Visit [facility] [address] [place] [address] Danna Irving MD [address] [place] [address] Health Maintenance Due Date Last Done Comments [...] PM EDT Narrative 12/19/2024 3:56 PM EDT ?[facility] ?[address] ?[place] [address] ?XRay Report ? Signed ? Patient: Gross,Arianna ?MR#: [id number] ?? 157 ? : 1985 ?Acct:[id number] ? Age/Sex: 39 / F ?ADM Date: 12/19/24 ? Loc: HO.HHCX ? Attending Dr: Luann Davison MD ? Ordering Physician: Luann Davison MD ?? Date of Service: 12/19/24 ?? Procedure(s): XR hip RT min 2V ?? Accession Number(s): [id number] ? cc: Luann Dvaison MD ? EXAMINATION: ??XR HIP 2 OR [...] ??Jason Kearney MD ??12/19/2024 03:53 PM EDT ?? RP ? Dictated By: ?Jason Kearney MD ? Signed By: ?<Electronically signed by Jason Kearney MD in OV> ?12/19/24 1553 ? DD/ 1321 ? TD/TT: 12/19/24 1325 ? Grain Origination Specialist: ? Procedure Note Bhanu, Image - 12/19/2024 [facility] [address] [place] [address] XRay Report Signed Patient: Anastasia GrossValerie#: [id number] 157 : 1985Acct:[id number] Age/Sex: 39 / FADM Date: 12/19/24 Loc: HO.HHCX Attending Dr: Luann Davison MD Ordering Physician: Luann Davison MD Date of Service: 12/19/24 Procedure(s): XR hip RT min 2V Accession Number(s): [id number] cc: Luann Davison MD EXAMINATION: XR HIP [...] 12/19/24 1553 DD/ 1321 TD/TT: 12/19/24 1325 Grain Origination Specialist: Luann Davison MD IMG XR PROCEDURES Final Result * XR Sacrum Coccyx 2+ Views (12/19/2024 1:19 PM EDT) Anatomical Region Laterality Modality Sacrum, Coccyx Radiographic Sun ging 12/19/2024 1:19 PM EDT Narrative 12/19/2024 4:00 PM EDT ?[facility] ?[address] ?[place] [address] ?XRay Report ? Signed ? Patient: Gross,Arianna ?MR#: [id number] ?? 157 ? : 1985 ?Acct:[id number] ? Age/Sex: 39 / F ?ADM Date: 04/03/25 ? Loc: HO.HHCX ? Attending Dr: Luann Davison MD ? Ordering Physician: Luann Davison MD ?? Date of Service: 12/19/24 ?? Procedure(s): XR sacrum coccyx min 2V ?? Accession Number(s): [id number] ? cc: Luann Davison MD ? EXAMINATION: [...] DD/ 1319 ? TD/TT: 12/19/24 1400 ? Grain Origination Specialist: ? Procedure Note Bhanu, Image - 12/19/2024 [place] [address] XRay Report Signed Patient: Mariah Gross#: [id number] 157 : 1985Acct:[id number] Age/Sex: 39 / FADM Date: 12/19/24 Loc: HO.HHCX Attending Dr: Luann Davison MD Ordering Physician: Luann Davison MD Date of Service: 12/19/24 Procedure(s): XR sacrum coccyx min 2V Accession Number(s): [id number] cc: Luann Davison MD EXAMINATION: XR SACRUM [...] 12/19/24 1557 DD/ 1319 TD/TT: 12/19/24 1400 Grain Origination Specialist: Luann Davison MD IMG XR PROCEDURES Final Result * XR Lumbar Spine Complete 4+ Views (12/19/2024 1:19 PM EDT) Anatomical Region Laterality Modality Spine, L-spine Radiographic Sun ging 12/19/2024 1:19 PM EDT Narrative 12/19/2024 3:55 PM EDT ?[facility] ?[address] ?[place] [address] ?XRay Report ? Signed ? Patient: Arianna Gross ?MR#: [id number] ?? 157 ? : 1985 ?Acct:[id number] ? Age/Sex: 39 / F ?ADM Date: 12/19/24 ? Loc: HO.HHCX ? Attending Dr: Luann Davison MD ? Ordering Physician: Luann Davison MD ?? Date of Service: 12/19/24 ?? Procedure(s): XR lumbar spine 4V min ?? Accession Number(s): [id number] ? cc: Luann Davison MD ? EXAMINATION: [...] DD/ 1319 ? TD/TT: 12/19/24 1400 ? Grain Origination Specialist: ? Procedure Note Donyossiter, Image - 12/19/2024 [place] [address] XRay Report Signed Patient: Luci GrosscaMR#: [id number] 157 : 1985Acct:[id number] Age/Sex: 39 / FADM Date: 12/19/24 Loc: HO.HHCX Attending Dr: Luann Davison MD Ordering Physician: Luann Davison MD Date of Service: 12/19/24 Procedure(s): XR lumbar spine 4V min Accession Number(s): [id number] cc: Luann Davison MD EXAMINATION: X-RAY LUMBAR [...] 12/19/24 1552 DD/ 1319 TD/TT: 12/19/24 1400 Grain Origination Specialist: us Luann Davison MD IMG XR PROCEDURES Edited Result - Final from Last 3 Months Insurance [facility] C3 Care Teams Biostatistics Teacher Relationship Specialty Start Date End Date Danna Irving MD [address] [place] [phone] PCP - General Internal Medicine 05/24/23
== END 2025-01-26 18:43 | disposition home or self-care (01) ==
LOC: HO.MRI 18:42
PROVIDERS: PCP Student in an Organized Health Care Education/Training Program; Visit Provider Registered Nurse Emergency
DX: M25.551 Pain in right hip (principal)
CPT/HCPCS: 73721

== ENCOUNTER 2025-02-27 06:13 | Outpatient (REF) | payer MEDICAID, SELFPAY ==
--- NOTE | ~2025-02-27 | FL_ITS ---
EXAMINATION: FL GUIDANCE ONLY HISTORY: M25.551 - Pain in right hip COMPARISON: None available. TECHNIQUE: Fluoroscopy time: Less than 0.1 minute. Cumulative Dose: 0.292 mGy. DAP: 0.55735 mGym2 Images: 2. FINDINGS: Fluoroscopic spot films of the right hip demonstrate a needle in place and contrast material in the joint space. FL/FL guidance in treatment room IMPRESSION: Fluoroscopy during procedure. Please see procedure report for additional information. Electronically signed by: Jason Kearney MD 02/27/2025 03:04 PM EDT
--- OUTSIDE RECORDS SUMMARY | 2025-02-27 06:15 | XMS_ITS | Encounter Summary ---
Author Organization [employer] Address [address] [place] [address] 7 [place] [address] Care Team Providers Care Oyster Culturist Name Role Phone Danna Irving MD Primary Care Pro vider Reason for Visit * Reason Onset Date Comments Med Refill 01/03/2025 Encounter Details Date Type Department Care Team (Late st Contact Info) Description 01/03/2025 Refill [facility] [address] [place] [address] Luann Davison MD [address] [place] [address] Social History Tobacco Use Types Packs/Day Years [...] as of this encounter Plan of Treatment Not on file documented as of this encounter Visit Diagnoses Not on filedocumented in this encounter Additional Health Concerns Assessment Noted Time PHQ-9 Depression Total Score: 2 05/24/20 9:24 AM EDT documented as of this encounter Care Teams Oyster Culturist Relationship Specialty Start Date End Date Danna Irving MD [address] [place] [phone] PCP - General Internal Medicine 05/24/23 documented as of this encounter
== END 2025-02-27 06:14 | disposition home or self-care (01) ==
LOC: CF 06:13
PROVIDERS: Visit Provider Internal Medicine
DX: M25.551 Pain in right hip (principal)
CPT/HCPCS: 20610; J2003; J2795; J3301; Q9967

== ENCOUNTER 2025-02-27 09:27 | Outpatient (AMB) | payer MEDICAID, SELFPAY ==
[2025-02-27 09:28] VITALS: BP 134/113; PULSE 117; RESP 16; O2SAT 99
--- NOTE | 2025-02-27 09:28 | MHC.OFFVIS ---
Vital Signs 02/27/25 09:28 BP 134/113 H Blood Pressure Location Lt brachial Position Sitting Respiration 16 Pulse 117 H Pulse Source Pulse Oximeter Pulse Oximetry (%) 99 Oxygen Delivery Method Room Air Intake Visit Reasons: right hip inj w/ fluoro/ ativan Allergies No Known Allergies Allergy (Verified 01/08/25 14:20) HPI HPI right hip inj w/ fluoro/ ativan: Details: Patient presents for scheduled procedure. Denies any recent cough, cold, infection, fever or other significant changes in medical history since last office visit. 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 Pre-procedure oxygen saturation, heart rate, and blood pressure were recorded. The skin was prepped with Chloroprep, and draped in a sterile fashion. With the use of fluoroscopy the hip joint was identified. With a 25-gauge 1.5 hypodermic needle 0.75% lidocaine was injected subcutaneously over the entry site. A 22-gauge 3.5 spinal needle was then advanced toward the junction of the joint capsule and femoral neck. Once in position, and after negative aspiration, 0.5mL of Omnipaque was injected outlining the joint capsule followed by injection of 40mg Kenalog mixed with 0.5% ropivacaine (3mL total). There was no evidence of paresthesias throughout needle placement. The stylet was replaced and then the needle was withdrawn. The patient tolerated the procedure well and there was no evidence of procedural complications. EBL: <1cc Coding 96363 - Large joint Procedure code (CPT) selection complete Assessment & Plan Assessment & Plan (1) Right hip pain: Code(s): M25.551 - Pain in right hip Category: Medical Plan Patient is status post right hip joint injection under fluoroscopy. Patient tolerated procedure well and was discharged home in stable condition with discharge instructions. All questions were answered. We will follow-up via telephone or in clinic to assess response to therapy. A follow-up appointment was made during today's visit. Orders: Orders AMB Joint Injection/Aspiration Today Ean Martinez MD M25.551 - Pain in right hip FL guidance in treatment room Today Carmen Merino APRN, HAND TIER M25.551 - Pain in right hip Medications: New lorazepam (Ativan) Take 30 minutes prior to arrival to procedure 1 mg PO ONCE 1 tab 0RF anxiety Carmen Merino APRN, HAND TIER Coding Level of Care Code Procedure Only Diagnoses Right hip pain M25.551 CPT Codes Coding - 81552 Large joint: 31487 - Large joint ([id number])
== END 2025-02-27 10:27 | disposition home or self-care (01) ==
LOC: HO.PMCPRC 09:27
PROVIDERS: PCP Student in an Organized Health Care Education/Training Program; Visit Provider Internal Medicine
DX: M25.551 Pain in right hip (principal)
CPT/HCPCS: 20610; 77002

== ENCOUNTER 2025-03-26 09:25 | Outpatient (AMB) | payer MEDICAID, SELFPAY ==
--- NOTE | 2025-03-26 09:29 | A.OFFVIS_ITS ---
Vital Signs 03/26/25 09:30 Height 5 ft 2.5 in Weight 100 lb BMI 18.0 BP 143/99 H Blood Pressure Location Rt brachial Position Sitting Respiration 16 Pulse 115 H Pulse Source Pulse Oximeter Pulse Oximetry (%) 99 Oxygen Delivery Method Room Air Intake Visit Reasons: s/p right hip inj Photographic Colorist Required: No Allergies No Known Allergies Allergy (Verified 03/26/25 09:33) HPI Comments Details: The patient is a 39-year-old female presenting with chronic hip pain The patient reports that the hip pain has worsened since receiving an injection last month, with increased cracking and constant pain. She now requires the use of a cane more frequently, although she tries to avoid using it around the house. Previously, she was able to walk to her garden with some difficulty, but now finds it impossible. The labral tear in the right hip was identified via MRI, and the patient has been advised to consult orthopedics for potential surgical intervention. The patient has been using topical creams and patches for pain management, but reports that they are ineffective. - Onset: Pain worsened after hip injection last month - Quality: Constant pain with increased cracking - Location: Hip - Exacerbating factors: Walking, stretching - Relieving factors: None reported - Interference: Requires cane for mobility, unable to walk to garden - Affect: Pain impacts mobility and daily activities, causing frustration - Analgesia: Current use of topical creams and patches, ineffective; occasional use of prescribed pills for sleep - Adverse Effects: None reported - Activities of Daily Living: Difficulty walking, requires cane, unable to perform gardening - Aberrant Drug Related Behaviors: None reported PFSH Surgical History (Updated 07/12/23 @ 10:03 by DELFIN Quintero) Hx of right knee surgery Social History (Updated 07/12/23 @ 10:06 by DELFIN Quintero) Patient Tobacco Use Status: Current everyday Tobacco user Current occupational status: employed 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 Answers questions appropriately. Fully engaged in examination. Skin: warm, dry, intact HEENT: Normocephalic. Hearing intact. Cardiac: External chest normal in appearance. Respiratory: No cough, audible wheezing or stridor. Abdomen: without gross distension. MS: No obvious swelling or deformities. Neurological: Oriented to person, place, time and situation. Thought process intact. Ambulates with the use of a cane Psychiatric: Appropriate mood and affect. Good judgment and insight. Results Reviewed Results Reviewed: 01/27/25 MRI right hip Findings: No bone marrow edema. Normal alignment without subluxation. No retroversion, over coverage, os acetabuli. Normal head neck angle. No fibrocystic lesion of the femoral neck. No dysplasia. Small right hip joint effusion. There is increased signal in the labrum with irregularity. The femoral and acetabular cartilage are intact. There is increased signal in ligamentum teres. The capsule and of other ligaments are normal. Unremarkable muscle, tendons and entheses. Normal vessels, nerves and soft tissues. No acute intrapelvic pathology. Fibroid uterus. Tampon in the vagina. Impression: Tear of the labrum. Increased signal in ligamentum teres may indicate partial tear. Small joint effusion. 12/19/24 XR/XR hip RT min 2V FINDINGS: Two views of the right hip are submitted. Osseous mineralization is normal. There is no fracture or dislocation. The joint space is maintained. The soft tissues are unremarkable. IMPRESSION: Unremarkable examination of the right hip. 12/19/24 XR/XR sacrum coccyx min 2V FINDINGS: No fracture, dislocation, or suspicious bone lesion. Sacral arches are intact. SI joints demonstrate very mild arthritic changes. The inferior sacrum and coccyx appear intact and unremarkable. Mild parasymphyseal spurring of the pubic bones. Normal-appearing hip joints. Normal-appearing lower lumbar spine. No soft tissue abnormalities. IMPRESSION: 1. No acute sacral or coccygeal abnormality. 2. 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 No lytic or blastic lesions. 7 mm metallic structure/foreign body in the abdomen and overlapping the L4 level. IMPRESSION: No acute fracture or listhesis. Negative.. Assessment & Plan Assessment & Plan (1) Right hip pain: Code(s): M25.551 - Pain in right hip Category: Medical (2) Labral tear of hip joint: Code(s): S73.199A - Other sprain of unspecified hip, initial encounter Category: Medical Plan The patient is advised to consult with orthopedics to evaluate the labral tear in the hip for potential surgical intervention. If orthopedics determines that surgery is not an option, a dorsal root ganglion stimulator trial may be considered to manage the chronic hip pain. The patient should undergo a mental health evaluation as required by insurance before proceeding with the stimulator trial. The patient is encouraged to research the dorsal root ganglion stimulator and consult with her insurance regarding coverage for the mental health evaluation. She was given pamphlet for [employer] to assist with mental health clearance for implantable devices. Patient was informed and verbally consented to the use of an ambient scribe for clinic note documentation during this visit. Patient Instructions: - Schedule an appointment with orthopedics to discuss the labral tear. - Research the dorsal root ganglion stimulator and watch informative videos. - Contact your insurance company to inquire about coverage for the mental health evaluation required for the stimulator trial. - Follow up with the clinic if you decide to proceed with the stimulator trial. Coding Level of Care Code Est Pt Level 3 (60440) Complex EM visit Add On G2211 Diagnoses Right hip pain M25.551 Labral tear of hip joint S73.199A
[2025-03-26 09:30] VITALS: BP 143/99; PULSE 115; RESP 16; O2SAT 99; BMI 18.0
--- OUTSIDE RECORDS SUMMARY | 2025-03-26 09:48 | XMS_ITS | Encounter Summary ---
Author Organization [employer] Address [address] [place] [address] 7 [place] [address] Care Team Providers Care Oil Furnace Installer Name Role Phone Danna Irving MD Primary Care Pro vider Reason for Visit * Reason Onset Date Comments Med Refill 01/03/2025 Encounter Details Date Type Department Care Team (Late st Contact Info) Description 01/03/2025 Refill [facility] [address] [place] [address] Luann Davison MD [address] [place] [address] Social History Tobacco Use Types Packs/Day Years [...] documented as of this encounter Care Teams Oil Furnace Installer Relationship Specialty Start Date End Date Danna Irving MD [address] [place] [id number] PCP - General Internal Medicine 05/24/23 documented as of this encounter
== END 2025-03-26 09:59 | disposition home or self-care (01) ==
LOC: HO.PMC 09:27
PROVIDERS: PCP Student in an Organized Health Care Education/Training Program; Visit Provider Registered Nurse Emergency
DX: M25.551 Pain in right hip (principal); S73.199A Other sprain of unspecified hip, initial encounter
CPT/HCPCS: 99213

== ENCOUNTER → 2025-03-26 09:25 | Outpatient (BNVA) | payer MEDICAID, SELFPAY | PROVIDERS: PCP Student in an Organized Health Care Education/Training Program; Visit Provider Registered Nurse Emergency | DX: M25.551 Pain in right hip (principal); S73.191A Other sprain of right hip, initial encounter | CPT/HCPCS: 99212 ==

== ENCOUNTER 2025-06-02 10:33 | Outpatient (AMB) | payer MEDICAID, SELFPAY ==
--- NOTE | 2025-06-02 10:38 | MHC.OFFVIS ---
Vital Signs 06/02/25 10:56 Height 5 ft 2.5 in Weight 100 lb BMI 18.0 Intake Visit Reasons: OV- Troch bursitis of RT hip, last inj 10/12/22 Intake Note: Arianna a 39 year old female who presents today for a follow up on her right hip pain. At her last visit on 07/12/23, an injection was given, referred to physical therapy and follow up as needed. Patient reports that she recently had an injection done under fluoroscopy guidance on 02/27/25, states since than her gonzalez has increased as well as cracking and popping more often in her hip. Her pain is located at the lateral aspect of hip that travels to her groin. She mentions a fall about two weeks ago, stating her hip gave out when she was going down the stairs. She has been using a cane with ambulation. Finds temporary relief with diclofenac topical cream. Allergies No Known Allergies Allergy (Verified 06/02/25 10:56) Medication List - Last Reconciled 06/02/25 by Nathalie Willson PA-C acetaminophen 1,000 mg PO Q6H PRN cyclobenzaprine 10 mg PO BEDTIME PRN ibuprofen 800 mg PO Q8H PRN HPI HPI OV- Troch bursitis of RT hip, last inj 10/12/22: Details: 39 yo female returns to the office today for right hip pain which has been ongoing since I last saw her in 2022. She states she did attend PT and states it was horrific. She states the PT made her feel debilitated. She states the pain is located along the lateral aspect of the hip and radiates into the groin. She did recently see pain management for her hip who ordered a hip injection under fluoroscopy. The patient states she had no relief with this injection at all. Pain mgmnt also discussed a dorsal root ganglion stimulator trial if surgical intervention was not an option based on her MRI findings. PFSH Surgical History Hx of right knee surgery Social History (Updated 06/02/25 @ 10:46 by DELFIN Quintero) Alcohol intake: current Alcohol intake frequency: a few times a week Patient Tobacco Use Status: Current everyday Tobacco user Current occupational status: unemployed Current occupation: right hand dominant Review of Systems Const All systems reviewed & are unremarkable except as noted in HPI and below Physical Exam Vital Signs: BMI result Body Mass Index 18.0 Const General: cooperative and no acute distress Orientation/consciousness: patient oriented x3 Resp Effort & Inspection: normal respiratory effort and able to speak in complete sentences Cardio Peripheral pulses: Peripheral pulses 2+ throughout Neuro General: patient oriented x3 Extrem Other: Patient is extremely guarded when it comes to her right hip. She is unable to lay on the table in a comfortable position. She has discomfort with active and passive hip flexion, extreme pain with internal external rotation of the hip. Assessment & Plan Assessment & Plan (1) Labral tear of hip joint: Code(s): S73.199A - Other sprain of unspecified hip, initial encounter Category: Medical (2) Trochanteric bursitis of right hip: Code(s): M70.61 - Trochanteric bursitis, right hip Category: Medical Plan Given the amount of discomfort the patient had and guarding on exam I do not feel it was necessary to continue. I did explain there is no surgical intervention warranted for a labral tear especially since she had no relief with intra-articular injection. If there were any need for surgery we would refer her to a hip specialist for this type of evaluation. At this time I recommend she follow up with pain management to discuss the dorsal root ganglion stimulator trial. Patient is content with this plan and will follow up with pain management. Coding Level of Care Code Est Pt Level 3 (97311) Complex EM visit Add On G2211 Diagnoses Labral tear of hip joint S73.199A Trochanteric bursitis of right hip M70.61
[2025-06-02 10:56] VITALS: BMI 18.0
--- OUTSIDE RECORDS SUMMARY | 2025-06-02 13:34 | XMS_ITS | Clinical Summary ---
Author Organization [employer] Address [address] [place] [address] 7 [place] [address] Care Team Providers Care Cable Armorer Operator Name Role Phone Danna Irving MD Primary Care Pro vider Allergies No known active allergies Medications acetaminophen (Tylenol) 500 MG tablet Take by mouth. Activ e meloxicam (Mobic) 15 MG tablet Take 1 tablet (15 mg) by mouth Once per day. 30 tablet 12/20/19 25 026 Active cyclobenzaprin e (Flexeril) 10 MG tablet Take 1 tablet (10 mg) by mouth at bedtime for 10 days. 10 tablet 12/20/19 25 Active lidocaine (Lidoderm) 5 % patch APPLY ONE PATCH TOPICALLY DAILY NEEDED FOR PAIN. REMOVE AFTER 12 HOURS 30 patch 2 02/12/20 25 Active nicotine (Nicoderm CQ) 14 MG/24HR patch Place 1 patch on the skin 1 (one) time each day at the same time. 42 patch 1 02/12/20 25 Active nicotine polacrilex (Nicotine Mini) 2 MG lozenge Dissolve 1 lozenge (2 mg) in the mouth every 2 (two) hours if needed for smoking cessation. 100 lozenge 02/12/20 25 Active sodium chloride ([place]) 0.65 % nasal spray Administer 1 spray into each nostril if needed for congestion. 15 mL 2 02/12/20 25 026 Active loratadine (Claritin) 10 MG tablet TAKE 1 TABLET BY MOUTH EVERY DAY 90 tablet 02/13/20 25 Active Diclofenac Sodium 1 % gel APPLY 1 APPLICATION. TOPICALLY AT NOON AND 1 APPLICATION. IN THE EVENING. APPLY IN RIGHT HIP. 100 g 05/20/20 25 Active Diclofenac Sodium 1 % gel APPLY 1 APPLICATION. TOPICALLY AT NOON AND 1 APPLICATION. IN THE EVENING. APPLY IN RIGHT HIP. 100 g 04/14/20 25 025 Discontinued Active Problems Problem Noted Date Diagnosed Date Abnormal color of tongue 02/11/2025 Ear pressure, left 02/11/2025 Menorrhagia 02/11/2025 Migraine headache 02/11/2025 Underweight 02/11/2025 Weight loss 02/11/2025 Health care maintenance 05/24/2023 Anxiety 05/24/2023 Tobacco use disorder 05/24/2023 Nevus 05/24/2023 Right hip pain 01/30/2023 Assessment & [...] Encounters Date Type Department Care Team Description 05/17/2025 Refill [facility] [address] [place] [address] Danna Irving MD 04/12/2025 Refill [facility] [address] [place] [address] Danna Irving MD 04/08/2025 Telephone [facility] [address] [place] [address] Danna Irving MD Durable Medical Equipment 03/10/2025 Refill [facility] [address] [place] [address] Danna Irving MD 03/05/2025 Orders Only [facility] [address] [place] [address] Luann Davison MD Arthritis of right hip from Last 3 Months Immunizations Immunization Administration Dates Next Due Influenza, seasonal, injectable, preservative fr ee 07/19/2006 PPD Test 09/03/1998 Family History Medical History Relation Name Comments DM2,HTN,dementia,TIAs Maternal Grandmother Skin cancer Maternal Grandmother Asthma Mother Valvular heart disease Mother cousin : sarcoma Other unspecified maliagncy Paternal Grandfather Heart disease Paternal Grandmother Asthma Sister Relation Name Status Comments Maternal Grandmother Mother Other Paternal Grandfather Paternal Grandmother Sister Social History Tobacco Use Types Packs/Day Years Used Date Smoking Tobacco: Every Day Cigarettes Passive Smoke Exposure: Current Smokeless Tobacco: Never Comments:Smoking tobacco sin ce 23 years of age -stopped during in -now smoking again ---5<-----7- 10 cigaret a day smoking for 16 years, PQT year 8 Alcohol Use Standard Drinks/Week Comments Yes 0 (1 standard drink = 0.6 oz pure alcohol) 2 to 3 times a week wine -2 glasses or mixed vodka Depression Answer Date Recorded Patient Health Questionnaire-9 Score 2 05/24/2023 Housing Stability Answer Date Recorded What is your housing situation today? I have caroleeeva olivera 02/11/[address] you li ve. Do you have problems with any of the following? None of the above 02/11/2025 Food Insecurity Answer Date Recorded Within the past 12 months, y ou worried that your food would run out before you got money to buy more: Never True 02/11/2025 Within the past 12 months,th e food you bought just didn't last and you didn't have enough money to get more: Never True Transportation Answer Date Recorded In the past 12 months, has l ack of transportation kept you from medical appts, meetings, work or from getting things needed for daily living? No 02/11/2025 Utilities Answer Date Recorded In the past 12 months, has t he electric, gas, oil or water company threatened to shut off services in your home? No 02/11/2025 Depression Answer Date Recorded Patient Health Questionnaire-2 Score 2 02/11/2025 Internet Access Answer Date Recorded Internet Access Q1 Yes 02/11/2025 Internet Access Q2 Not on file 02/11/2025 Comments Unknown Sex and Gender Information Value Date Recorded Sex Assigned at Female 01/30/2023 4:20 PM EDT Legal Sex Female 4:12 PM EDT Gender Identity Female 01/30/2023 4:20 PM EDT Sexual Orientation Straight 01/30/2023 4: 20 PM EDT Last Filed Vital Signs Vital Sign Reading Time Taken Comments Blood Pressure 117/70 02/11/2025 11:54 AM EDT Pulse 100 02/11/2025 11:54 AM EDT Temperature 36.3 C (97.3 F) 02/11/2025 11:54 AM EDT Respiratory Rate 20 02/11/2025 11:54 AM EDT Oxygen Saturation 97% 12/19/2024 12:28 PM EDT Inhaled Oxygen Concentration - - Weight 42.5 kg (93 lb 9.6 oz) 02/11/2025 11:54 A M EDT Height 157.5 cm (5' 2 ) 02/11/2025 11:54 AM EDT Body Mass Index 17.12 02/11/2025 11:54 AM EDT Plan of Treatment Health Maintenance Due Date Last Done Comments HIV Screening 1983 Lipid Panel 1983 Family Planning (PISQ) 1998 HPV Vaccines (1 - 3-dose series) 1998 Hepatitis C Screening 2001 DTaP/Tdap/Td Vaccines (1 - Tdap) 2002 Hepatitis B Vaccines (1 of 3 - 19+ 3-dose series) 2002 Pneumococcal Vaccine: Pediatrics (0 to 5 Years) and At-Risk Patients (6 to 49) Years (1 of 2 - PCV) 2002 Pap Smear 2004 Cervical Cancer Screening 2013 HPV/Cotest 2013 Mammogram 2023 COVID-19 Vaccine (1 - 2023-2 5 season) 2025 Influenza Vaccine (#1) 2025 07/19/2006 Alcohol/Substance Use Screening 02/11/2026 02/11/2025 Depression Screening 02/11/2026 02/11/2025, 05/24/2023 Disability Screening 02/11/2026 02/11/2025 SDOH Screening 02/11/2026 02/11/2025 Tobacco Screening 02/11/2026 02/11/2025 Zoster Vaccines (1 of 2) 2033 RSV [...] patient's age to complete this topic Meningococcal B Vaccine Aged Out No l onger eligible based on patient's age to complete this topic Meningococcal Vaccine Aged Out No jesenia linda eligible based on patient's age to complete this topic RSV under 20 months Aged Out No longe r eligible based on patient's age to complete this topic Rotavirus Vaccines Aged Out No longer eligible based on patient's age to complete this topic Insurance [facility] C3 Care Teams Cable Armorer Operator Relationship Specialty Start Date End Date Danna Irving MD [address] [place] [phone] PCP - General Internal Medicine 05/24/23
--- OUTSIDE RECORDS SUMMARY | 2025-06-02 13:34 | XMS_ITS | Encounter Summary ---
Author Organization [employer] Address [address] [place] [address] 7 [place] [address] Care Team Providers Care Plow Shaker Name Role Phone Danna Irving MD Primary Care Pro vider Reason for Visit * Reason Onset Date Comments Med Refill 01/03/2025 Encounter Details Date Type Department Care Team (Late st Contact Info) Description 01/03/2025 Refill [facility] [address] [place] [address] Luann Davison MD [address] [place] [address] Social History Tobacco Use Types Packs/Day Years [...] documented as of this encounter Care Teams Plow Shaker Relationship Specialty Start Date End Date Danna Irving MD [address] [place] [phone] PCP - General Internal Medicine 05/24/23 documented as of this encounter
== END 2025-06-02 11:11 | disposition home or self-care (01) ==
LOC: HO.HOS 10:33
PROVIDERS: PCP Student in an Organized Health Care Education/Training Program; Visit Provider Physician Assistant
DX: S73.199A Other sprain of unspecified hip, initial encounter (principal); M70.61 Trochanteric bursitis, right hip
CPT/HCPCS: 99213

== ENCOUNTER → 2025-06-02 10:33 | Outpatient (BNVA) | payer MEDICAID, SELFPAY | PROVIDERS: PCP Student in an Organized Health Care Education/Training Program; Visit Provider Physician Assistant | DX: M70.61 Trochanteric bursitis, right hip (principal); S73.192A Other sprain of left hip, initial encounter | CPT/HCPCS: 99212 ==

== ENCOUNTER 2025-06-06 13:01 | Outpatient (AMB) | payer MEDICAID, SELFPAY ==
--- NOTE | 2025-06-06 13:03 | MHC.OFFVIS ---
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 The pain has been persistent, with episodes of worsening severity, and is not relieved by current treatments such as Tylenol, patches, and creams. She reports that the pain is severe enough to impact her daily activities and sleep, with medications causing vivid dreams and only providing temporary relief. The patient also reports muscle weakness, which has been attributed to a lack of muscle mass as noted by the community engagement specialist. She experienced a fall down several stairs due to her hip giving out, which has increased her concern about her mobility and strength. Patient had a recent visit with Orthopedics for her hip pain where she was told that there is no surgery warranted and she was recommended to follow up back in our office. Additionally, the patient has experienced significant weight loss since a hospitalization for the flu and gastrointestinal issues last August. She has been unable to regain the lost weight despite nutritional supplementation with products like Boost. This is being managed by her primary care doctor. - Onset: Chronic, with episodes of worsening severity - Quality: Severe, impacting daily activities and sleep - Location: Hip - Exacerbating factors: Movement, lack of muscle mass - Relieving factors: Temporary relief with medications, though associated with adverse effects - Affect: Pain impacts sleep and daily activities, causing distress - Analgesia: Current use of Tylenol, patches, and creams with limited relief; goal is to reduce pain to a manageable level - Adverse Effects: Medications cause vivid dreams and only provide temporary relief - Activities of Daily Living: Pain limits mobility and ability to perform daily tasks - Aberrant Drug Related Behaviors: None reported [facility] Surgical History Hx of right knee surgery Social History (Updated 06/02/25 @ 10:46 by DELFIN Quintero) Alcohol intake: current Alcohol intake frequency: a few times a week Patient Tobacco Use Status: Current everyday Tobacco user Current occupational status: unemployed Current occupation: right hand dominant Review of Systems Const Details: - Musculoskeletal: Reports chronic hip pain, muscle weakness - Neurological: Reports vivid dreams as a side effect of medication - General: Reports weight loss, difficulty regaining weight Physical Exam Exam Exam: General: awake, alert, oriented. Answers questions appropriately. Fully engaged in examination. Skin: warm, dry, intact HEENT: Normocephalic. Hearing intact. Cardiac: External chest normal in appearance. Respiratory: No cough, audible wheezing or stridor. Abdomen: without gross distension. MS: No obvious swelling or deformities. Neurological: Oriented to person, place, time and situation. Thought process intact. Ambulates with the use of a cane Psychiatric: Appropriate mood and affect. Good judgment and insight. Vital Signs: Last Vital Signs Pulse 115 H 06/06/25 13:06 Resp 16 06/06/25 13:06 BP 131/95 H 06/06/25 13:06 Pulse Ox 99 06/06/25 13:06 Oxygen Delivery Method Room Air 06/06/25 13:06 BMI result Body Mass Index 16.9 Results Reviewed Results Reviewed: 01/27/25 MRI right hip Findings: No bone marrow edema. Normal alignment without subluxation. No retroversion, over coverage, os acetabuli. Normal head neck angle. No fibrocystic lesion of the femoral neck. No dysplasia. Small right hip joint effusion. There is increased signal in the labrum with irregularity. The femoral and acetabular cartilage are intact. There is increased signal in ligamentum teres. The capsule and of other ligaments are normal. Unremarkable muscle, tendons and entheses. Normal vessels, nerves and soft tissues. No acute intrapelvic pathology. Fibroid uterus. Tampon in the vagina. Impression: Tear of the labrum. Increased signal in ligamentum teres may indicate partial tear. Small joint effusion. 12/19/24 XR/XR hip RT min 2V FINDINGS: Two views of the right hip are submitted. Osseous mineralization is normal. There is no fracture or dislocation. The joint space is maintained. The soft tissues are unremarkable. IMPRESSION: Unremarkable examination of the right hip. 12/19/24 XR/XR sacrum coccyx min 2V FINDINGS: No fracture, dislocation, or suspicious bone lesion. Sacral arches are intact. SI joints demonstrate very mild arthritic changes. The inferior sacrum and coccyx appear intact and unremarkable. Mild parasymphyseal spurring of the pubic bones. Normal-appearing hip joints. Normal-appearing lower lumbar spine. No soft tissue abnormalities. IMPRESSION: 1. No acute sacral or coccygeal abnormality. 2. 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 No lytic or blastic lesions. 7 mm metallic structure/foreign body in the abdomen and overlapping the L4 level. IMPRESSION: No acute fracture or listhesis. Negative.. Assessment & Plan Assessment & Plan (1) Right hip pain: Code(s): M25.551 - Pain in right hip Category: Medical (2) Labral tear of hip joint: Code(s): S73.199A - Other sprain of unspecified hip, initial encounter Category: Medical Plan The plan includes considering a dorsal root ganglion stimulator trial to manage the chronic hip pain, as surgical options were deemed unnecessary by the community engagement specialist. The patient will need a mental health clearance for the implantable device, and a pamphlet for a mental health provider will be provided. During the trial, the patient will maintain a pain diary to track pain levels and activities, which will help assess the effectiveness of the stimulator. If the trial is successful, the patient may proceed with the permanent implant, which could facilitate participation in physical therapy to improve muscle strength and mobility. The patient is advised to monitor her activities and avoid overexertion to prevent exacerbation of pain. Will schedule for fluoroscopy guided dorsal root ganglion stimulator trial with [facility]. Patient was informed and verbally consented to the use of an ambient scribe for clinic note documentation during this visit. Patient Instructions: - Consider the dorsal root ganglion stimulator trial for pain management. - Obtain mental health clearance for the implantable device. - Maintain a pain diary during the trial to track pain levels and activities. - Monitor activities and avoid overexertion to prevent pain exacerbation. Coding Level of Care Code Est Pt Level 3 (31451) Complex EM visit Add On G2211 Diagnoses Right hip pain M25.551 Labral tear of hip joint S73.199A
--- OUTSIDE RECORDS SUMMARY | 2025-06-06 13:05 | XMS_ITS | Clinical Summary ---
Author Organization [employer] Address [address] [place] [address] 7 [place] [address] Care Team Providers Care Power Brake Operator Name Role Phone Danna Irving MD [...] 100 lozenge 02/12/20 25 Active sodium chloride ([place]) 0.65 % nasal spray Administer 1 spray [...] Type Department Care Team Description 05/17/2025 Refill [facility] [address] [place] [address] Danna Irving MD 04/12/2025 Refill [facility] [address] [place] [address] Danna Irving MD 04/08/2025 Telephone [facility] [address] [place] [address] Danna Irving MD Durable Medical Equipment 03/10/2025 Refill [facility] [address] [place] [address] Danna Irving MD from Last 3 Months Immunizations Immunization Administration [...] your housing situation today? I have carolee jarod 02/11/[address] you li [...] patient's age to complete this topic Insurance [facility] C3 Care Teams Power Brake Operator Relationship Specialty Start Date End Date Danna Irving MD [address] [place] [phone] PCP - General Internal Medicine 05/24/23
--- OUTSIDE RECORDS SUMMARY | 2025-06-06 13:05 | XMS_ITS | Encounter Summary ---
Author Organization [employer] Address [address] [place] [address] [address] [place] [address] Care Team Providers Care Cardiology Nurse Name Role Phone Danna Irving MD Primary Care Pro vider Reason for Visit * Reason Onset Date Comments Med Refill 01/03/2025 Encounter Details Date Type Department Care Team (Late st Contact Info) Description 01/03/2025 Refill [facility] [address] [place] [address] Luann Davison MD [address] [place] [address] Social History Tobacco Use Types Packs/Day Years [...] documented as of this encounter Care Teams Cardiology Nurse Relationship Specialty Start Date End Date Danna Irving MD [address] [place] [id number] PCP - General Internal Medicine 05/24/23 documented as of this encounter
[2025-06-06 13:06] VITALS: BP 131/95; PULSE 115; RESP 16; O2SAT 99; BMI 16.9
== END 2025-06-06 13:34 | disposition home or self-care (01) ==
LOC: HO.PMC 13:02
PROVIDERS: PCP Student in an Organized Health Care Education/Training Program; Visit Provider Registered Nurse Emergency
DX: M25.551 Pain in right hip (principal); S73.199A Other sprain of unspecified hip, initial encounter
CPT/HCPCS: 99213

== ENCOUNTER → 2025-06-06 13:01 | Outpatient (BNVA) | payer MEDICAID, SELFPAY | PROVIDERS: PCP Student in an Organized Health Care Education/Training Program; Visit Provider Registered Nurse Emergency | DX: M25.551 Pain in right hip (principal); S73.191A Other sprain of right hip, initial encounter | CPT/HCPCS: 99212 ==